=== PATIENT | female | born 1985 | race Two or more races ===

== ENCOUNTER 2021-08-07 06:06 | Day surgery (SDC) | payer BC ==
[2021-08-01 14:05] LABS: BASOPHILS % (AUTO) 0.4 % (0-1); EOSINOPHILS # (AUTO) 0.1 X10'3 (0-0.9); EOSINOPHILS % (AUTO) 0.8 % (0-6); LYMPHOCYTES # (AUTO) 1.8 X10'3 (1.1-4.8); LYMPHOCYTES % (AUTO) 25.3 % (21-51); MEAN CORPUSCULAR HEMOGLOBIN 29.6 PG (27.0-31.0); MEAN CORPUSCULAR HGB CONC 33.3 g/dL (33.0-36.5); MEAN CORPUSCULAR VOLUME 88.8 FL (78-98); MEAN PLATELET VOLUME 7.9 FL (7.4-10.4); MONOCYTES # (AUTO) 0.4 X10'3 (0-0.9); MONOCYTES % (AUTO) 5.6 % (2-12); NEUTROPHILS # (AUTO) 4.9 X10'3 (1.8-7.7); NEUTROPHILS % (AUTO) 67.9 % (42-75); PRE OP PLATELET COUNT 294 X10'3 (140-440); RED BLOOD COUNT 4.74 X10'6 (4.20-5.60); RED CELL DISTRIBUTION WIDTH 13.6 % (11.5-14.5)
[2021-08-01 14:18] LABS: PRE OP PROTIME 10.7 SECONDS (9.0-12.0)
[2021-08-01 14:23] LABS: ALBUMIN 4.1 G/DL (3.4-5.0); ALKALINE PHOSPHATASE 110 IU/L (46-116); BLOOD UREA NITROGEN 9 MG/DL (7-18); BUN/CREATININE RATIO 11.7 (6.6-38.0); CHLORIDE 104 MMOL/L (99-107); CREATININE 0.77 MG/DL (0.40-0.90); PRE OP ALT 20 U/L (30-65); PRE OP ANION GAP 10 (8-16); PRE OP AST 17 U/L (10-37); PRE OP BILIRUB, TOTAL 0.5 MG/DL (0.0-1.0); PRE OP GLUCOSE 90 MG/DL (70-104); PRE OP POTASSIUM 3.7 MMOL/L (3.4-5.1); PRE OP SODIUM 141 MMOL/L (135-145); TOTAL CARBON DIOXIDE 27.5 MMOL/L (24-32); TOTAL PROTEIN 8.3 G/DL (6.4-8.2); eGFR 84 ML/MIN
[2021-08-01 14:29] LABS: HCG SERUM QL NEGATIVE
[~2021-08-07] VITALS: Ht 165.1 cm; Wt 97.6 kg
[2021-08-07] VITALS (11 sets, daily range): BP systolic 106–153; BP diastolic 68–97
[~2021-08-07 06:06] MED LIST: ASCO-134 PO; CHOL1CRY2 PO; CYAN250010 PO; diazepam 5mg tablet PO ONE; famotidine 20mg tablet PO ONE; oxymetazoline 15 ML nasal spray NS PRN; ringers solution, lacted 1,000 ML IV SCH
[2021-08-07] MEDS ORDERED: DIAZ5TAB PO (06:36)
[2021-08-07] MEDS ORDERED: LIDOcaine 1% W/epiNEPHrine 1:100,000 20ml vial ONE (06:41)
[2021-08-07] MEDS ORDERED: mupirocin 2% ointment 22GM ONE (06:41)
[2021-08-07] MEDS ORDERED: oxymetazoline 15 ML nasal spray NS ONE (06:41)
[2021-08-07] MEDS ORDERED: cocaine 4% topical solution 4ml bottle ONE (06:42)
[2021-08-07] MEDS: oxymetazoline 15 ML nasal spray NS PRN ×2 (07:37→07:43)
[2021-08-07] MEDS ORDERED: fentaNYL/PF 50MCG/1 ML 2ML syringe ONE (07:53)
[2021-08-07] MEDS ORDERED: midazolam 1 mg/ML 2ml injection ONE ×2 (07:54)
[2021-08-07] MEDS ORDERED: ondansetron/PF 4mg/2ml inj ONE (07:54)
[2021-08-07] MEDS ORDERED: hydrALAZINE 20mg/ml inj. IV PRN (08:00)
[2021-08-07] MEDS ORDERED: morphine 2 MG/ML inj. syringe IV PRN (08:00)
[2021-08-07] MEDS ORDERED: morphine 4 MG/ML inj SYRINge IV PRN (08:00)
[2021-08-07] MEDS ORDERED: ondansetron/PF 4mg/2ml inj IV PRN (08:00)
[2021-08-07] MEDS ORDERED: ringers solution, lacted 1,000 ML IV SCH (08:00)
[2021-08-07] MEDS ORDERED: fentaNYL/PF 50MCG/1 ML 2ML syringe IV PRN ×2 (08:00)
[2021-08-07] MEDS ORDERED: labetalol 20mg/4ml (5mg/ml) syringe IV PRN (08:00)
[2021-08-07] MEDS ORDERED: propofol 10mg/ml 20ml vial IV ONE (08:10)
[2021-08-07] MEDS ORDERED: sevoflurane 250ml liquid IH ONE (08:10)
[2021-08-07] MEDS ORDERED: dexamethasone sod phosphate 10mg/ml inj ONE (08:10)
--- NOTE | 2021-08-07 09:22 | NUR ---
Received from OR via [facility], 20G TO RIGHT WRIST, COTTONOIDS TO BILAT RIGO HANH, accompanied by Anesthesiologist DR READ and report given by Anesthesiolgist. Addendum: 08/07/21 at 0941 by Debbie Platt RN Amended: Links added.
[2021-08-07] MEDS ORDERED: HYDROcodone/acetaminophen 5mg/325mg tablet PO ONE (10:45)
[2021-08-07] MEDS ORDERED: salt irrigation nasal spray 45 ML SPRAY NS SCH (11:00)
--- NOTE | 2021-08-07 11:02 | NUR ---
PT UP AND DRESSED, VSS, DENIES ANY PAIN, PIV D/CD- CANNULA INTACT, DISCUSSED HOME CARE FOR NASAL IRRIGATION AND MEDICATIONS, PT USED OCEAN SPRAY AND OINTMENT BEFORE LEAVING, ALL QUESTIONS ANSWERED, FRESH GAUZE PLACE UNDER NOSE, PT TAKEN WITH SUPPLIES AND BELONGINGS TO VEHICLE, TRANSPORTED BY [facility]. Addendum: 08/07/21 at 1125 by Debbie Platt RN Amended: Links added.
[2021-08-07] MEDS ORDERED: mupirocin 2% ointment 22GM NS SCH (13:00)
== END 2021-08-07 11:02 | disposition home or self-care (01) ==
LOC: PAS 06:06
PROVIDERS: ATTEND Otolaryngology
DX: J34.2 Deviated nasal septum (principal); J34.3 Hypertrophy of nasal turbinates; J45.909 Unspecified asthma, uncomplicated; F41.9 Anxiety disorder, unspecified; Z79.01 Long term (current) use of anticoagulants; Z79.899 Other long term (current) drug therapy; Z20.822 Contact with and (suspected) exposure to COVID-19; Z98.890 Other specified postprocedural states; Z90.721 Acquired absence of ovaries, unilateral; Z72.89 Other problems related to lifestyle; Z87.891 Personal history of nicotine dependence; Z91.018 Allergy to other foods
CPT/HCPCS: 30140; 30520; 36415; 80053; 82948; 84703; 85025; 85576; 85610; 85730; 87635; A6402; C9250; C9803; J1100; J2250; J2405; J2704; J3010; J3490; J7030; J7120; U0003; U0005; Z7506; Z7508; Z7512; A4618; A7000

== ENCOUNTER 2022-09-12 10:50 | Day surgery (SDC) | payer BC ==
[2022-09-06 15:17] LABS: BASOPHILS % (AUTO) 0.6 % (0-1); EOSINOPHILS # (AUTO) 0.1 X10'3 (0-0.9); EOSINOPHILS % (AUTO) 0.9 % (0-6); HEMOGLOBIN 13.8 g/dl (12.0-16.0); LYMPHOCYTES # (AUTO) 2.2 X10'3 (1.1-4.8); LYMPHOCYTES % (AUTO) 27.2 % (21-51); MEAN CORPUSCULAR HEMOGLOBIN 29.5 PG (27.0-31.0); MEAN CORPUSCULAR HGB CONC 33.7 g/dL (33.0-36.5); MEAN CORPUSCULAR VOLUME 87.5 FL (78-98); MEAN PLATELET VOLUME 7.9 FL (7.4-10.4); MONOCYTES # (AUTO) 0.5 X10'3 (0-0.9); MONOCYTES % (AUTO) 5.7 % (2-12); NEUTROPHILS # (AUTO) 5.3 X10'3 (1.8-7.7); NEUTROPHILS % (AUTO) 65.6 % (42-75); PLATELET COUNT 282 X10'3 (140-440); RED BLOOD COUNT 4.69 X10'6 (4.20-5.60); RED CELL DISTRIBUTION WIDTH 14.1 % (11.5-14.5); WHITE BLOOD COUNT 8.1 X10'3 (4.5-11.0)
[2022-09-06 15:23] LABS: HCG SERUM QL NEGATIVE
[2022-09-06 15:33] LABS: ALANINE AMINOTRANSFERASE 37 U/L (12-78); ALKALINE PHOSPHATASE 105 IU/L (46-116); ANION GAP 10 (8-16); ASPARTATE AMINO TRANSFERASE 22 U/L (10-37); BILIRUBIN,TOTAL 0.3 MG/DL (0.1-1.0); BLOOD UREA NITROGEN 7 MG/DL (7-18); BUN/CREATININE RATIO 10.4 (10.0-20.0); CALCIUM 9.2 MG/DL (8.5-10.1); CHLORIDE 103 MMOL/L (99-107); CREATININE 0.67 MG/DL (0.40-0.90); GLUCOSE 95 MG/DL (70-104); SODIUM 141 MMOL/L (135-145); TOTAL CARBON DIOXIDE 27.9 MMOL/L (24-32); TOTAL PROTEIN 7.9 G/DL (6.4-8.2); eGFR > 90 ML/MIN
[~2022-09-12] VITALS: Ht 165.1 cm; Wt 101.5 kg
[2022-09-12] VITALS (10 sets, daily range): BP systolic 107–127; BP diastolic 45–73
[~2022-09-12 10:50] MED LIST changes: -ASCO-134 PO; +CLIN60LO2 TOP; -CYAN250010 PO; +FIBER SUPPLEMENT; +L-THEANINE; +MELA5TAB14 PO; +[UNRECOGNIZED DRUG - CODE] TOP; -diazepam 5mg tablet PO ONE; -famotidine 20mg tablet PO ONE; -oxymetazoline 15 ML nasal spray NS PRN; -ringers solution, lacted 1,000 ML IV SCH
[2022-09-12] MEDS ORDERED: famotidine 20mg tablet PO ONE (11:00)
[2022-09-12] MEDS ORDERED: proCHLORperazine 10 MG/2 ml inj IV PRN (11:40)
[2022-09-12] MEDS ORDERED: ondansetron/PF 4mg/2ml inj IV PRN (11:40)
[2022-09-12] MEDS ORDERED: ringers solution, lacted 1,000 ML IV SCH (11:40)
[2022-09-12] MEDS ORDERED: meperidine/PF 25mg/ml syringe IV PRN ×3 (11:40)
[2022-09-12] MEDS ORDERED: morphine 4 MG/ML inj SYRINge IV PRN (11:40)
[2022-09-12] MEDS ORDERED: morphine 2 MG/ML inj. syringe IV PRN (11:40)
[2022-09-12 12:05] LABS: HCG SERUM QL NEGATIVE
[2022-09-12] MEDS ORDERED: BUPIVAcaine/PF 2.5 mg/ml (0.25%) 30ml vial ONE (12:17)
[2022-09-12] MEDS ORDERED: sevoflurane 250ml liquid IH ONE (12:34)
[2022-09-12] MEDS ORDERED: fentaNYL/PF 50MCG/1 ML 2ML syringe ONE (12:41)
[2022-09-12] MEDS ORDERED: midazolam 1 mg/ML 2ml injection ONE (12:42)
[2022-09-12] MEDS ORDERED: BUPIVAcaine/PF 2.5 mg/ml (0.25%) 30ml vial IJ ONE (12:43)
[2022-09-12] MEDS ORDERED: rocuronium 10mg/ml inj IV ONE (13:27)
[2022-09-12] MEDS ORDERED: propofol inj 20 ML IV ONE (13:27)
[2022-09-12] MEDS ORDERED: ondansetron/PF 4mg/2ml inj ONE (13:28)
[2022-09-12] MEDS ORDERED: dexamethasone sod phosphate 4mg/ml inj. ONE (13:28)
[2022-09-12] MEDS ORDERED: ketorolac trometh. 30mg/ml inj. ONE (13:30)
[2022-09-12] MEDS ORDERED: sugammadex 200mg/2ml injection IV ONE (13:36)
--- NOTE | 2022-09-12 13:47 | NUR ---
Received from OR via [facility] TO RR 6 , accompanied by Anesthesiologist dr. MCCRARY and report given by Anesthesiolgist. PT PRESENTS WUTH PVI 20 G L HAND, SPO2 100 % ON 6 LPM MASK, LR RUNNING AT 20 ML/HR, VSS Addendum: 09/12/22 at 1420 by Debra Griffin RN, RN Amended: Links added.
[2022-09-12] MEDS ORDERED: oxyCODONE/APAP 5-325mg tablet PO ONE (14:40)
== END 2022-09-12 15:17 | disposition home or self-care (01) ==
LOC: PAS 10:50
PROVIDERS: ATTEND Obstetrics & Gynecology
DX: N70.11 Chronic salpingitis (principal); N83.6 Hematosalpinx; E66.9 Obesity, unspecified; Z68.37 Body mass index [BMI] 37.0-37.9, adult; Z98.890 Other specified postprocedural states; Z91.048 Other nonmedicinal substance allergy status; Z90.721 Acquired absence of ovaries, unilateral; Z79.899 Other long term (current) drug therapy; Z80.41 Family history of malignant neoplasm of ovary; Z80.49 Family history of malignant neoplasm of other genital organs; Z83.3 Family history of diabetes mellitus; Z80.0 Family history of malignant neoplasm of digestive organs
CPT/HCPCS: 36415; 58661; 80053; 82948; 84703; 85025; 86885; 86900; 86901; J1100; J1885; J2175; J2250; J2405; J2704; J3010; J3490; J7030; J7120; Z7506; Z7508; Z7512; A4618